=== PATIENT | female | born 1980 | race Caucasian/White ===

== ENCOUNTER 2016-10-31 20:20 | Inpatient (IN) | payer BC ==
[~2016-10-31] VITALS: Ht 162.6 cm; Wt 87.0 kg
[2016-10-31 21:19] LABS: ASPARTATE AMINO TRANSFERASE 44 U/L (15-37); BLOOD UREA NITROGEN 12 mg/dL (7-18)
[2016-10-31 21:20] LABS: LACTATE DEHYDROGENASE 216 U/L (84-246)
[2016-10-31 21:23] LABS: HEMOGLOBIN 13.2 g/dL (11.7-16.4); WHITE BLOOD COUNT 8.2 x10^3/uL (3.4-10)
[2016-10-31] MEDS ORDERED: MAGNESIUM SULF. PMX 20GM/500ML 500 ML IV ONE (22:11)
[2016-10-31] MEDS: LACTATED RINGERS 1,000 ML IV SCH (22:25)
[2016-10-31] MEDS: MAGNESIUM SULF. PMX 20GM/500ML 500 ML IV SCH (22:27)
[2016-10-31] MEDS ORDERED: MAGNESIUM SULFATE PMX 4GM/100M 100 ML IVPB ONE (22:30)
[2016-10-31] MEDS ORDERED: ONDANSETRON 2MG/ML, 2ML IVPush PRN (23:00)
[2016-11-01] MEDS ORDERED: MAGNESIUM SULF. PMX 20GM/500ML 500 ML IV ONE ×2 (04:32→14:46)
[2016-11-01 04:35] LABS: HEMATOCRIT 42.4 % (34.6-47.8); HEMOGLOBIN 14.1 g/dL (11.7-16.4); WHITE BLOOD COUNT 8.6 x10^3/uL (3.4-10)
[2016-11-01] MEDS: MAGNESIUM SULF. PMX 20GM/500ML 500 ML IV SCH ×2 (04:35→14:48)
[2016-11-01 04:47] LABS: BLOOD UREA NITROGEN 10 mg/dL (7-18)
[2016-11-01 04:50] LABS: ASPARTATE AMINO TRANSFERASE 40 U/L (15-37)
[2016-11-01] MEDS ORDERED: DOCUSATE 100 MG CAPSULE ONE (07:31)
[2016-11-01] MEDS ORDERED: PRENATAL VIT/IRON/FA 1 EACH TABLET ONE (07:31)
[2016-11-01] MEDS: PRENATAL VIT/IRON/FA 1 EACH TABLET PO SCH (07:32)
[2016-11-01] MEDS: LACTATED RINGERS 1,000 ML IV SCH (11:40)
[2016-11-01 11:41] VITALS: BP 133/76
[2016-11-01] MEDS ORDERED: CALCIUM CARBONATE 500 MG TAB.CHEW ONE (12:31)
[2016-11-01] MEDS: ACETAMINOPHEN 500 MG TABLET PO PRN ×2 (12:35→21:51)
[2016-11-01 16:11] VITALS: BP 129/80
[2016-11-01 16:13] LABS: HEMATOCRIT 38.3 % (34.6-47.8); WHITE BLOOD COUNT 8.9 x10^3/uL (3.4-10)
[2016-11-01 16:23] LABS: BLOOD UREA NITROGEN 13 mg/dL (7-18)
[2016-11-01 16:28] LABS: ASPARTATE AMINO TRANSFERASE 30 U/L (15-37)
[2016-11-01] MEDS ORDERED: BETAMETHASONE 6 MG/ML, 5ML IM ONE (18:30)
[2016-11-01 19:57] VITALS: BP 118/68
[2016-11-01] MEDS ORDERED: ACETAMINOPHEN 325 MG TABLET ONE (21:47)
[2016-11-02] MEDS ORDERED: MAGNESIUM SULF. PMX 20GM/500ML 500 ML IV ONE (01:58)
[2016-11-02] MEDS: MAGNESIUM SULF. PMX 20GM/500ML 500 ML IV SCH ×2 (02:03→11:28)
[2016-11-02 04:56] LABS: HEMATOCRIT 37.5 % (34.6-47.8); HEMOGLOBIN 12.7 g/dL (11.7-16.4); WHITE BLOOD COUNT 9.8 x10^3/uL (3.4-10)
[2016-11-02 05:06] LABS: BLOOD UREA NITROGEN 15 mg/dL (7-18)
[2016-11-02 05:10] LABS: ASPARTATE AMINO TRANSFERASE 26 U/L (15-37)
[2016-11-02] MEDS: ACETAMINOPHEN 500 MG TABLET PO PRN ×2 (07:50→22:21)
[2016-11-02] MEDS: LACTATED RINGERS 1,000 ML IV SCH (08:43)
[2016-11-02] MEDS ORDERED: DOCUSATE 100 MG CAPSULE ONE (08:47)
[2016-11-02] MEDS ORDERED: PRENATAL VIT/IRON/FA 1 EACH TABLET ONE (08:47)
[2016-11-02] MEDS: DOCUSATE 100 MG CAPSULE PO SCH ×2 (08:49→21:00)
[2016-11-02] MEDS: PRENATAL VIT/IRON/FA 1 EACH TABLET PO SCH (08:49)
[2016-11-03 05:47] LABS: HEMATOCRIT 36.6 % (34.6-47.8); HEMOGLOBIN 12.4 g/dL (11.7-16.4); WHITE BLOOD COUNT 9.1 x10^3/uL (3.4-10)
[2016-11-03 06:08] LABS: BLOOD UREA NITROGEN 13 mg/dL (7-18)
[2016-11-03 06:12] LABS: ASPARTATE AMINO TRANSFERASE 30 U/L (15-37)
[2016-11-03] MEDS ORDERED: DOCUSATE 100 MG CAPSULE ONE (07:51)
[2016-11-03] MEDS ORDERED: PRENATAL VIT/IRON/FA 1 EACH TABLET ONE (07:51)
[2016-11-03] MEDS: PRENATAL VIT/IRON/FA 1 EACH TABLET PO SCH (07:52)
[2016-11-03] MEDS: DOCUSATE 100 MG CAPSULE PO SCH ×3 (07:53→21:00)
[2016-11-03 08:12] VITALS: BP 130/77
[2016-11-03 16:29] LABS: HEMATOCRIT 37.1 % (34.6-47.8); HEMOGLOBIN 12.6 g/dL (11.7-16.4); WHITE BLOOD COUNT 7.9 x10^3/uL (3.4-10)
[2016-11-03 16:42] LABS: ASPARTATE AMINO TRANSFERASE 54 U/L (15-37); BLOOD UREA NITROGEN 16 mg/dL (7-18)
[2016-11-03] MEDS ORDERED: ALUMINUM/MAG/SIMETHICONE 30 ML UDC ONE (17:39)
[2016-11-03] MEDS ORDERED: ALUMINUM/MAG/SIMETHICONE 30 ML UDC PO PRN (18:00)
[2016-11-03 22:27] VITALS: BP 127/73
[2016-11-03] MEDS: ACETAMINOPHEN 500 MG TABLET PO PRN (22:48)
[2016-11-04 06:10] LABS: HEMATOCRIT 35.5 % (34.6-47.8); HEMOGLOBIN 12.1 g/dL (11.7-16.4); WHITE BLOOD COUNT 7.2 x10^3/uL (3.4-10)
[2016-11-04 06:14] LABS: ASPARTATE AMINO TRANSFERASE 69 U/L (15-37); BLOOD UREA NITROGEN 12 mg/dL (7-18)
[2016-11-04] MEDS: LACTATED RINGERS 1,000 ML IV SCH ×4 (08:27→19:50)
[2016-11-04] MEDS ORDERED: ONDANSETRON 2MG/ML, 2ML IVPush ONE (08:30)
[2016-11-04] MEDS ORDERED: LACTATED RINGERS 1,000 ML IVBOLUS ONE (08:30)
[2016-11-04] MEDS ORDERED: SODIUM CITRATE/CITRIC ACID 30 ML UDC PO ONE (08:30)
[2016-11-04] MEDS ORDERED: METOCLOPRAMIDE 5 MG/ML, 2ML IV ONE (08:30)
[2016-11-04] MEDS ORDERED: NEWBORN KIT ONE (08:53)
[2016-11-04] MEDS: PRENATAL VIT/IRON/FA 1 EACH TABLET PO SCH (09:00)
[2016-11-04] MEDS: DOCUSATE 100 MG CAPSULE PO SCH ×2 (09:00→21:00)
[2016-11-04 15:24] LABS: HEMATOCRIT 38.2 % (34.6-47.8); HEMOGLOBIN 12.7 g/dL (11.7-16.4); WHITE BLOOD COUNT 8.1 x10^3/uL (3.4-10)
[2016-11-04 15:44] LABS: ASPARTATE AMINO TRANSFERASE 81 U/L (15-37); BLOOD UREA NITROGEN 12 mg/dL (7-18)
[2016-11-04] MEDS ORDERED: SODIUM CITRATE/CITRIC ACID 30 ML UDC ONE (15:55)
[2016-11-04] MEDS ORDERED: METOCLOPRAMIDE 5 MG/ML, 2ML ONE (15:56)
[2016-11-04] MEDS ORDERED: FENTANYL PF 100 MCG/2ML ONE ×3 (16:28→19:29)
[2016-11-04] MEDS ORDERED: HYDROmorphone 2 MG/ML, 1ML ONE (16:29)
[2016-11-04] MEDS ORDERED: ONDANSETRON 2MG/ML, 2ML ONE (17:22)
[2016-11-04] MEDS: OXYTOCIN 30U/ 0.9% NaCL 500ML 500 ML IV SCH ×2 (18:16→23:35)
[2016-11-04] MEDS ORDERED: MAGNESIUM SULF. PMX 20GM/500ML 500 ML IV ONE (18:30)
[2016-11-04] MEDS ORDERED: MAGNESIUM SULFATE PMX 4GM/100M 100 ML ONE (18:30)
[2016-11-04] MEDS ORDERED: OXYTOCIN 30U/ 0.9% NaCL 500ML 500 ML IV SCH (18:33)
[2016-11-04] MEDS ORDERED: LACTATED RINGERS 1,000 ML IV SCH ×2 (18:33)
[2016-11-04] MEDS ORDERED: METOCLOPRAMIDE 5 MG/ML, 2ML IV PRN (19:00)
[2016-11-04] MEDS ORDERED: BISACODYL 10 MG SUPP PR PRN (19:00)
[2016-11-04] MEDS ORDERED: ACETAMINOPHEN 325 MG TABLET PO PRN (19:00)
[2016-11-04] MEDS ORDERED: DOCUSATE 100 MG CAPSULE PO PRN (19:00)
[2016-11-04] MEDS ORDERED: OXYcodone IR 5MG TABLET PO PRN (19:00)
[2016-11-04] MEDS ORDERED: MAGNESIUM SULFATE PMX 4GM/100M 100 ML IV ONE (19:00)
[2016-11-04] MEDS ORDERED: SIMETHICONE 80 MG CHEW TAB PO PRN (19:00)
[2016-11-04] MEDS ORDERED: MAGNESIUM SULFATE PMX 4GM/100M 100 ML IVPB ONE (19:00)
[2016-11-04] MEDS ORDERED: CARBOPROST TROMETHAMINE 250 MCG/ML, 1ML IM PRN (19:00)
[2016-11-04] MEDS ORDERED: OXYcodone/APAP 5/325MG TABLET PO PRN (19:00)
[2016-11-04] MEDS: MAGNESIUM SULF. PMX 20GM/500ML 500 ML IV PRN (19:04)
[2016-11-04] MEDS: FENTANYL PF 100 MCG/2ML IVPush PRN ×3 (19:34→20:22)
[2016-11-04] MEDS ORDERED: OXYcodone 5 MG/5 ML ORAL.SOL UDC ONE (20:36)
[2016-11-04] MEDS ORDERED: OXYcodone 5 MG/5 ML ORAL.SOL UDC PO PRN ×2 (21:00)
[2016-11-04] MEDS ORDERED: MEPERIDINE/PF 100 MG/ML ONE (22:21)
[2016-11-04] MEDS: MEPERIDINE/PF 100 MG/ML IM PRN (22:27)
[2016-11-04] MEDS ORDERED: OXYTOCIN 30U/ 0.9% NaCL 500ML 500 ML ONE (23:13)
[2016-11-05] MEDS: LACTATED RINGERS 1,000 ML IV SCH ×5 (00:16→22:30)
[2016-11-05] MEDS ORDERED: MEPERIDINE/PF 100 MG/ML ONE (01:28)
[2016-11-05] MEDS: MEPERIDINE/PF 100 MG/ML IM PRN (01:33)
[2016-11-05] MEDS ORDERED: LABETALOL 5MG/ML, 20ML IVPush ONE ×3 (03:30→21:00)
[2016-11-05] MEDS ORDERED: LABETALOL 5MG/ML, 20ML ONE (03:34)
[2016-11-05] MEDS ORDERED: MAGNESIUM SULF. PMX 20GM/500ML 500 ML IV ONE ×2 (04:01→13:08)
[2016-11-05] MEDS: MAGNESIUM SULF. PMX 20GM/500ML 500 ML IV PRN ×2 (04:09→13:14)
[2016-11-05] MEDS: OXYTOCIN 30U/ 0.9% NaCL 500ML 500 ML IV SCH ×2 (04:16→14:16)
[2016-11-05] MEDS ORDERED: OXYcodone IR 5MG TABLET ONE ×5 (05:01→21:16)
[2016-11-05] MEDS: OXYcodone IR 5MG TABLET PO PRN ×5 (05:03→21:20)
[2016-11-05 07:59] LABS: ASPARTATE AMINO TRANSFERASE 73 U/L (15-37); BLOOD UREA NITROGEN 8 mg/dL (7-18)
[2016-11-05] MEDS ORDERED: PRENATAL VIT/IRON/FA 1 EACH TABLET PO SCH (09:00)
[2016-11-05 09:15] VITALS: BP 148/95
[2016-11-05 14:00] VITALS: BP 158/92
[2016-11-05] MEDS: niFEDipine ER 60 MG TABLET.ER PO SCH (15:56)
[2016-11-06] MEDS: OXYTOCIN 30U/ 0.9% NaCL 500ML 500 ML IV SCH ×3 (00:16→20:16)
[2016-11-06] MEDS ORDERED: OXYcodone IR 5MG TABLET ONE ×8 (01:22→21:31)
[2016-11-06] MEDS: OXYcodone IR 5MG TABLET PO PRN ×6 (01:25→21:32)
[2016-11-06] MEDS: niFEDipine ER 60 MG TABLET.ER PO SCH (08:42)
[2016-11-06 09:31] LABS: ASPARTATE AMINO TRANSFERASE 341 U/L (15-37); BLOOD UREA NITROGEN 10 mg/dL (7-18)
[2016-11-06 09:35] LABS: HEMATOCRIT 42.1 % (34.6-47.8)
[2016-11-06] MEDS ORDERED: LACTATED RINGERS 1,000 ML IV PRN ×2 (09:49→16:00)
[2016-11-06] MEDS ORDERED: MAGNESIUM SULF. PMX 20GM/500ML 500 ML IV ONE ×2 (09:55→19:10)
[2016-11-06] MEDS ORDERED: MAGNESIUM SULFATE PMX 4GM/100M 100 ML ONE (09:55)
[2016-11-06] MEDS ORDERED: MAGNESIUM SULFATE PMX 4GM/100M 100 ML IVPB ONE (10:00)
[2016-11-06] MEDS: LACTATED RINGERS 1,000 ML IV SCH ×2 (10:03→11:50)
[2016-11-06] MEDS: MAGNESIUM SULF. PMX 20GM/500ML 500 ML IV SCH ×2 (10:32→19:14)
[2016-11-06 14:38] VITALS: BP 121/70
[2016-11-06] MEDS ORDERED: PREN1TAB60 PO (15:09)
[2016-11-06] MEDS ORDERED: OXYcodone 5 MG/5 ML ORAL.SOL UDC PO PRN (16:00)
[2016-11-06] MEDS ORDERED: MEPERIDINE/PF 100 MG/ML IM PRN (16:00)
[2016-11-06] MEDS ORDERED: FENTANYL PF 100 MCG/2ML IVPush PRN (16:00)
[2016-11-06] MEDS ORDERED: ACETAMINOPHEN 500 MG TABLET PO PRN (16:00)
[2016-11-06] MEDS ORDERED: ONDANSETRON 2MG/ML, 2ML IVPush PRN (16:00)
[2016-11-06] MEDS ORDERED: METOCLOPRAMIDE 5 MG/ML, 2ML IV PRN (16:00)
[2016-11-06] MEDS ORDERED: BISACODYL 10 MG SUPP PR PRN (16:00)
[2016-11-06] MEDS ORDERED: ACETAMINOPHEN 325 MG TABLET PO PRN (16:00)
[2016-11-06] MEDS ORDERED: ALUMINUM/MAG/SIMETHICONE 30 ML UDC PO PRN (16:00)
[2016-11-06 16:20] VITALS: BP 130/77
[2016-11-06 18:02] VITALS: BP 122/81
[2016-11-06 22:28] VITALS: BP 139/87
[2016-11-07] MEDS: LACTATED RINGERS 1,000 ML IV SCH ×2 (01:10→14:30)
[2016-11-07] MEDS ORDERED: OXYcodone IR 5MG TABLET ONE ×3 (01:34→18:06)
[2016-11-07] MEDS: OXYcodone IR 5MG TABLET PO PRN ×3 (01:36→18:07)
[2016-11-07] MEDS ORDERED: LABETALOL 5MG/ML, 20ML IVPush STA (02:23)
[2016-11-07] MEDS ORDERED: LABETALOL 5MG/ML, 20ML ONE (02:25)
[2016-11-07] MEDS ORDERED: SIMETHICONE 80 MG CHEW TAB ONE ×3 (02:26→14:09)
[2016-11-07] MEDS: SIMETHICONE 80 MG CHEW TAB PO PRN ×3 (02:32→14:10)
[2016-11-07] MEDS ORDERED: ONDANSETRON 2MG/ML, 2ML ONE ×2 (04:05→07:47)
[2016-11-07] MEDS ORDERED: MAGNESIUM SULF. PMX 20GM/500ML 500 ML IV ONE (05:00)
[2016-11-07] MEDS: MAGNESIUM SULF. PMX 20GM/500ML 500 ML IV SCH (05:04)
[2016-11-07 06:09] LABS: ASPARTATE AMINO TRANSFERASE 129 U/L (15-37); BLOOD UREA NITROGEN 12 mg/dL (7-18)
[2016-11-07 06:11] LABS: HEMATOCRIT 42.6 % (34.6-47.8); HEMOGLOBIN 14.4 g/dL (11.7-16.4); WHITE BLOOD COUNT 12.5 x10^3/uL (3.4-10)
[2016-11-07] MEDS: OXYTOCIN 30U/ 0.9% NaCL 500ML 500 ML IV SCH (06:16)
[2016-11-07] MEDS ORDERED: BISACODYL 10 MG SUPP ONE (07:44)
[2016-11-07] MEDS ORDERED: D5%-LACTATED RINGERS 1,000 ML IV SCH (08:00)
[2016-11-07] MEDS ORDERED: LABETALOL 100 MG TABLET PO SCH (08:30)
[2016-11-07] MEDS ORDERED: LABETALOL 100 MG TABLET ONE ×2 (08:46→20:56)
[2016-11-07] MEDS: niFEDipine ER 60 MG TABLET.ER PO SCH (08:48)
[2016-11-07] MEDS: PRENATAL VIT/IRON/FA 1 EACH TABLET PO SCH (09:00)
[2016-11-07 13:54] VITALS: BP 124/75
[2016-11-07 15:06] VITALS: BP 124/72
[2016-11-07] MEDS: SODIUM CHLORIDE FLUSH 3ML SYRINGE IVF SCH (21:00)
[2016-11-07] MEDS: LABETALOL 100 MG TABLET PO SCH (21:01)
[2016-11-07 21:40] VITALS: BP 131/87
[2016-11-07] MEDS: OXYcodone/APAP 5/325MG TABLET PO PRN (21:55)
[2016-11-07] MEDS: DOCUSATE 100 MG CAPSULE PO PRN (21:56)
[2016-11-08] MEDS: OXYcodone/APAP 5/325MG TABLET PO PRN ×6 (02:07→20:28)
[2016-11-08 02:13] VITALS: BP 127/88
[2016-11-08 05:32] LABS: HEMATOCRIT 35.9 % (34.6-47.8); HEMOGLOBIN 12.2 g/dL (11.7-16.4); WHITE BLOOD COUNT 8.7 x10^3/uL (3.4-10)
[2016-11-08 05:35] LABS: BLOOD UREA NITROGEN 11 mg/dL (7-18)
[2016-11-08 05:40] LABS: ASPARTATE AMINO TRANSFERASE 77 U/L (15-37)
[2016-11-08] MEDS: LABETALOL 100 MG TABLET PO SCH ×2 (08:11→20:29)
[2016-11-08] MEDS: PRENATAL VIT/IRON/FA 1 EACH TABLET PO SCH (08:42)
[2016-11-08] MEDS: DOCUSATE 100 MG CAPSULE PO PRN ×2 (08:42→20:28)
[2016-11-08] MEDS: niFEDipine ER 60 MG TABLET.ER PO SCH (08:42)
[2016-11-08] MEDS: SODIUM CHLORIDE FLUSH 3ML SYRINGE IVF SCH ×2 (09:00→21:00)
[2016-11-08 09:10] VITALS: BP 123/82
[2016-11-08 20:25] VITALS: BP 141/93
[2016-11-08 21:50] VITALS: BP 128/83
[2016-11-09 00:30] VITALS: BP 136/82
[2016-11-09] MEDS: OXYcodone/APAP 5/325MG TABLET PO PRN ×5 (00:30→18:03)
[2016-11-09 06:00] VITALS: BP 138/86
[2016-11-09 09:00] VITALS: BP 138/86
[2016-11-09] MEDS: SODIUM CHLORIDE FLUSH 3ML SYRINGE IVF SCH (09:00)
[2016-11-09] MEDS: DOCUSATE 100 MG CAPSULE PO PRN (09:05)
[2016-11-09] MEDS: niFEDipine ER 60 MG TABLET.ER PO SCH (09:05)
[2016-11-09] MEDS: PRENATAL VIT/IRON/FA 1 EACH TABLET PO SCH (09:05)
[2016-11-09] MEDS: LABETALOL 100 MG TABLET PO SCH (09:05)
[2016-11-09 14:00] VITALS: BP 121/75
[2016-11-09] MEDS ORDERED: DOCU-131 PO (17:31)
[2016-11-09] MEDS ORDERED: NIFE90TA PO (17:31)
[2016-11-09] MEDS ORDERED: OXYC-302 PO (17:32)
== END 2016-11-09 18:33 | disposition home or self-care (01) | DRG 765 ==
LOC: LDIP 20:20 → 2NW 11-07 21:13
PROVIDERS: ADMIT Obstetrics & Gynecology Maternal & Fetal Medicine; ATTEND Obstetrics & Gynecology Maternal & Fetal Medicine
PROC: 10D00Z1 Extraction of Products of Conception, Low, Open Approach (ICD-10-PCS; principal; 2016-10-31)
DX: O14.14 Severe pre-eclampsia complicating childbirth (principal); O36.5930 Maternal care for other known or suspected poor fetal growth, third trimester, not applicable or unspecified; Z37.0 Single live birth; O69.81X0 Labor and delivery complicated by cord around neck, without compression, not applicable or unspecified; M79.7 Fibromyalgia; O09.523 Supervision of elderly multigravida, third trimester; Z14.1 Cystic fibrosis carrier; Z3A.34 34 weeks gestation of pregnancy
CPT/HCPCS: 36415; 71020; 80053; 81001; 82248; 82570; 82803; 83615; 83735; 84156; 84550; 85025; 86850; 86900; 87081; J0702; J1170; J2405; J3010; J2175; J2590; J2765; J3475; J7120; J7121